=== PATIENT | female | born 1990 | race Caucasian/White ===

== ENCOUNTER 2018-05-27 18:18 | Inpatient (IN) | payer OTHER ==
[2018-05-27 21:44] LABS: RPR Titer ND
[2018-05-27 22:04] LABS: Glucose Level 89 mg/dL (74-106)
[2018-05-27 22:07] LABS: Absolute Lymphocytes (CBC) 2.4 K/uL (0.7-4.9); Absolute Monocytes 0.9 K/uL (0.1-1.3); Absolute Neutrophil 9.5 K/uL (1.8-8.0); Basophils % 0.2 % (0-1.3); Eosinophils % 0.5 % (0-4.4); Hematocrit 38.3 % (36.0-45.0); Lymphocytes % 18.7 % (15.3-44.8); MPV 12.5 fL (7.6-11.3); Monocytes % 7.1 % (3.3-12.3); RBC Red Blood Cell Count 4.56 M/uL (3.86-4.86)
[2018-05-27 22:37] LABS: Blood Morphology Comment NOT SEEN (NOT SEEN); Platelet Estimate DECR; Platelets, Giant 1+; Urine White Blood Cell Casts OK
[2018-05-27] MEDS ORDERED: Ringers Lactate 1,000 ML IV SCH (23:00)
[2018-05-27 23:03] VITALS: BMI 25.8
[2018-05-28 01:03] LABS: Urine Appearance CLEAR; Urine Bilirubin NEGATIVE (NEG); Urine Blood TRACE (NEG); Urine Color DK YELLOW; Urine Glucose NEGATIVE (NEG); Urine Protein NEGATIVE (NEG); Urine Specific Gravity 1.015 (1.005-1.030)
[2018-05-28 01:15] LABS: Barbiturates NEGATIVE (NEGATIVE); Benzodiazepines NEGATIVE (NEGATIVE); Cocaine NEGATIVE (NEGATIVE); METHAMPHETAM NEGATIVE (NEGATIVE); Methadone NEGATIVE (NEGATIVE); Opiates POSITIVE (NEGATIVE); Phencyclidine NEGATIVE (NEGATIVE); THC Cannibis NEGATIVE (NEGATIVE)
[2018-05-28 01:18] LABS: Urine Bacteria <20 /HPF (<20); Urine Culture Reflex Order REFLEXED; Urine RBC <5 /HPF (NONE SEEN)
[2018-05-28 05:27] LABS: Absolute Lymphocytes (CBC) 2.7 K/uL (0.7-4.9); Absolute Monocytes 0.9 K/uL (0.1-1.3); Absolute Neutrophil 7.1 K/uL (1.8-8.0); Basophils % 0.4 % (0-1.3); Hematocrit 34.3 % (36.0-45.0); Lymphocytes % 25.2 % (15.3-44.8); MPV 12.2 fL (7.6-11.3); Monocytes % 8.6 % (3.3-12.3); RBC Red Blood Cell Count 4.13 M/uL (3.86-4.86)
[2018-05-28] MEDS ORDERED: METOCLOPRAMIDE 10 MG/2mL INJ IV SCH (07:00)
[2018-05-28] MEDS ORDERED: NA CIT/CITRIC AC 30 ML ORAL UDC PO ONE (07:00)
[2018-05-28] MEDS ORDERED: FAMOTIDINE 20 MG/2 ML VIAL IV ONE ×2 (07:00→07:27)
--- NOTE | 2018-05-28 07:12 | P.PN ---
Date of Service: 05/28/18 27 year old, suspected growth restriction, oligohydramnios, non-reassuring fht's
[2018-05-28] MEDS ORDERED: MORPHINE SULFATE/PF 1 MG/ML (10 ML AMP) ONE (07:21)
[2018-05-28] MEDS ORDERED: EPHEDRINE SULF 50 MG/ML VIAL ONE (07:22)
[2018-05-28] MEDS ORDERED: OXYTOCIN 10 UNIT/ML ML IV ONE ×2 (07:22→08:46)
[2018-05-28] MEDS ORDERED: NS 0.9% VIAL 10 ML ONE (07:22)
[2018-05-28] MEDS ORDERED: METOCLOPRAMIDE 10 MG/2mL INJ ONE (07:26)
[2018-05-28] MEDS ORDERED: METHYLERGONOVINE 0.2MG/ML AMP IM ONE (07:27)
[2018-05-28] MEDS ORDERED: NA CIT/CITRIC AC 30 ML ORAL UDC ONE (07:27)
[2018-05-28] MEDS ORDERED: CARBOPROST TROME 250 MCG/ML IM ONE ×2 (07:27→08:04)
[2018-05-28] MEDS ORDERED: CEFAZOLIN/SWI 1gm 0 GM/0 ML SYR ONE (07:27)
[2018-05-28] MEDS ORDERED: ONDANSETRON 4 MG/2 ML VIAL ONE (07:28)
[2018-05-28] MEDS ORDERED: CEFAZOLIN/SWI 2gm 2 GM/20 ML SYR ONE (07:42)
--- NOTE | 2018-05-28 08:28 | PREOPHP ---
Date of Admission: 05/28/2018 History Of Present Illness: Ms. Rendon is a 27-year-old single female, 1, para 0, at approximately 37 weeks gestation. She presents to Labor and Delivery with complaints of possible leakage of fluid approximately 12 hours previously. We could not document this, but upon monitoring, severe variable type of deceleration was noted. Because of this, she was admitted for 23-hour observation. She had been seen by a physician in [place], but had not been seen since January. Infant has been active. Past Medical History: Includes only prior placement of plate because of left wrist fracture, otherwise no other hospitalizations, accidents, illnesses, or surgeries. Medications: She is on no medications on a regular basis other than vitamin. Social History: She does smoke one half pack per day, smoked over a pack per day earlier in her . Allergies: SHE HAS NO KNOWN ALLERGIES. DID TAKE A COUPLE OF LORTABS PRIOR TO PRESENTING TO LABOR AND DELIVERY BECAUSE OF SOME BACK DISCOMFORT. Family History: Noncontributory. Review of Systems: She has had dry nonproductive cough. She had a little nausea earlier in the week with vomiting, but that is now normal. She denies any breast lumps. Infant has been active. She denies any current vaginal bleeding or spotting. She denies any discharge problems. She denies recurring bouts of diarrhea or constipation. Physical Examination: General: Reveals female in no apparent distress. Neck: Supple without adenopathy or thyromegaly. Lungs: Clear. Cardiac: Regular rate and rhythm without murmurs. Breasts: Not examined. Abdomen: Consistent with approximately 5+ pound estimated weight. Pelvic Exam: Cervix 2 cm, 70%, vertex, and -1 station. Extremities: No cyanosis, clubbing, or edema. Ultrasound reveals some degree of oligohydramnios, calcified placenta, measurements consistent with approximately 35+ weeks gestation. The patient on monitoring has shown some significant variable decelerations and with evidence of oligohydramnios and placental calcifications. I feel the risk of possible stillbirth and/or that the baby would not tolerate labor are extremely high. She will be delivered by primary section. We will have assistant gm of content & delivery available. This has been discussed with the patient. JEAN-PAUL/CLARIBEL Voice ID: [id number] MTDD
--- NOTE | 2018-05-28 08:35 | RAD REPORT ---
EXAM DESCRIPTION: US - OB Complete - 05/28/2018 7:17 am CLINICAL HISTORY: 37 weeks gestation with decelarations age. COMPARISON: No comparisons FINDINGS: A single cephalic presenting gestation is identified. Heart rate normal. The intracranial contents and spine are grossly normal. A normal stomach bubble is noted. A nor mal fluid-filled urinary bladder seen without pelviectasis. The cord appears three-vessel. Limi emigdio four-chamber view the heart due to age. Estimated weight 6 pounds 6 ounces plus or mi nus 15 ounces. measurements are as follows: BPD:8.8 Centimeters 35 weeks 5 days HC:31.5 Centimeters 35 weeks 2 days AC:32.9 Centimeters 36 weeks 5 days HL:5.9 Centimeters 34 weeks 2 days FL:7.0 Centimeters 35 weeks 5 days The estimated gestational age (EGA) is 35 weeks 4 days with an FAUSTINA of06/28/2018. The placenta is grade 1-2, posterior in location. No placenta previa. The amniotic fluid index is 6.9 cm, with largest pocket 5.0 cm. The maternal adnexa show no worrisome findings. IMPRESSION: 1. Single, cephalic gestation with an EGA of 35 weeks 4 days and an FAUSTINA of the 9. 2. No gross abnormalities are identifiable. Estimated weight 6 pounds 6 ounces +/-15 ounc es. 3. Grade 1-2, posterior placenta. 4. Amniotic fluid index is6.9 cm, with largest pocket5.0 cm -- considered within normal limits.
[2018-05-28] MEDS ORDERED: KETOROLAC 30 MG/ML INJ IV PRN (08:48)
[2018-05-28] MEDS ORDERED: ONDANSETRON 4 MG (ODT) TAB PO PRN (08:48)
[2018-05-28] MEDS ORDERED: CARBOPROST TROME 250 MCG/ML IM PRN (08:48)
[2018-05-28] MEDS ORDERED: METHYLERGONOVINE 0.2 MG TAB PO PRN (08:48)
--- NOTE | 2018-05-28 08:53 | P.BOP ---
Preoperative diagnosis: 37 week , nonreasurring fht's Postoperative diagnosis: same, oligohydramnios, meconium, viable female Primary procedure: Rug Repairer: Kunal Astudillo Estimated blood loss: 800 Specimen: placenta Anesthesia: Spinal Complications: None Drain(s): Urinary catheter Transferred to: Other (2709) Condition: Good
[2018-05-28] MEDS ORDERED: OXYTOCIN/LR 20 UNIT/1,000 ML BAG IV SCH (09:00)
[2018-05-28] MEDS ORDERED: NALOXONE 0.4 MG/ML VIAL IV PRN (09:34)
[2018-05-28] MEDS ORDERED: DIPHENHYDRAMINE 50 MG/ML VIAL IV PRN (09:34)
[2018-05-28] MEDS ORDERED: PROMETHAZINE 25 MG/ML VIAL IV PRN (09:35)
[2018-05-28] MEDS ORDERED: ONDANSETRON 4 MG/2 ML VIAL IV PRN (09:35)
[2018-05-28] MEDS ORDERED: Ringers Lactate 1,000 ML IV ONE (12:39)
--- NOTE | 2018-05-28 16:23 | P.BOP ---
Preoperative diagnosis: 37 week , nonreasurring fht's Postoperative diagnosis: same, oligohydramnios, meconium, viable female Primary procedure: Convention Planner: Kunal Astudillo Estimated blood loss: 800 Specimen: placenta Complications: None Drain(s): Urinary catheter Transferred to: Other (2709) Condition: Good
[2018-05-28] MEDS: Oxycodone HCl/Acetaminophen 1 TAB TAB PO PRN (19:50)
--- NOTE | 2018-05-29 03:14 | OP ---
Surgeon: Jesus Sanchez MD Anesthesiologist: Jewell Doss and Dr. Cristhian Perez. Preoperative Diagnoses: 1.Enfnof-erdvm-lazv . 2.Nonreassuring heart rate with severe variable decelerations. 3.Thrombocytopenia. Procedures: Spinal block anesthesia, primary section, delivery of viable female infant. Postoperative Diagnoses: 1.Cqxeqp-sghxt-mcox . 2.Nonreassuring heart rate with severe variable decelerations. 3.Thrombocytopenia. Description Of Procedure: After the patient received 2 g of Ancef for antibiotic prophylaxis with SC Ds in place, Ross catheter in place, and a spinal block anesthesia obtained, the patient was prepped and draped in the usual fashion for abdominal surgery. A Pfannenstiel skin incision was made, cristina ed down to the fascia. Fascia was incised with a combination of sharp and blunt dissection. This wa s from the underlying rectus muscles. These were divided in the midline. The peritoneum w as identified and incised. Vesicouterine peritoneum was incised. A bladder flap was developed blunt ly. A low-transverse uterine incision was made. A 5-pound 7-ounce female with moderate mecon ium staining of limited amniotic fluid was noted. was delivered vertex OA. Cord was clamped, cut, and the was placed in a warmer. Cord blood was obtained. Placenta was manually removed . The uterus was then exteriorized. The cervix was dilated from above with a ring clamp, which was passed from the operative field. The uterus was closed in 2 layers utilizing 0 Vicryl suture in a ru nning fashion and the second layer was used to imbricate the first. Both layers were nonlocking runn ing sutures. The vesicouterine peritoneum bladder flap was reapproximated with a running suture of 3 -0 Vicryl. The uterus was returned to the peritoneal cavity. A couple of small less than 0.5 cm fib roids were noted on the posterior uterus, subserosal location. The peritoneum was cleaned of amnioti c fluid and blood clot and closed by approximating the rectus muscles in the midline with simple sutu res. The fascia was closed with running sutures of #1 Vicryl from either margin to the middle. Subc utaneous sutures of 3-0 Vicryl, subdermal suture of 3-0 Vicryl, and subcuticular suture of 4-0 Monocr yl were used to close the skin and skin edges. The patient was taken to recovery room in satisfactor y condition with Ross catheter in place and SCDs in place. Estimated total blood loss was less than 800 cc. The patient was given 1 dose of methargen at the time of delivery to help ensure prompt togiak rine contracture with history of thrombocytopenia. Customer Care Associate Surgeon: Dr. Astudillo. JEAN-PAUL/CLARIBEL Voice ID: [id number] Report ID: [id number]
[2018-05-29 03:25] LABS: RPR (Rapid Plasma Reagin) NON-REACT (NON-REACT)
[2018-05-29] MEDS: Oxycodone HCl/Acetaminophen 1 TAB TAB PO PRN ×3 (04:38→19:15)
[2018-05-29 06:32] LABS: Absolute Lymphocytes (CBC) 2.1 K/uL (0.7-4.9); Absolute Monocytes 0.7 K/uL (0.1-1.3); Absolute Neutrophil 7.1 K/uL (1.8-8.0); Basophils % 0.4 % (0-1.3); Hematocrit 32.4 % (36.0-45.0); Lymphocytes % 20.8 % (15.3-44.8); MPV 12.7 fL (7.6-11.3); Monocytes % 6.7 % (3.3-12.3); RBC Red Blood Cell Count 3.89 M/uL (3.86-4.86)
--- NOTE | 2018-05-29 07:29 | P.PN ---
Date of Service: 05/29/18 S-No complaints O-Afeb, vs stable, platelet count 80K, stable, abdomen flat and bandage dry A-Satisfactory P-ambulate, regular diet, lawrence out
[2018-05-29 08:40] LABS: Platelet Estimate ADEQ; Platelets, Giant MOD; Urine White Blood Cell Casts OK
[2018-05-29 08:41] LABS: Blood Morphology Comment NOT SEEN (NOT SEEN)
[2018-05-30] MEDS: Oxycodone HCl/Acetaminophen 1 TAB TAB PO PRN ×2 (00:10→05:08)
--- NOTE | 2018-05-30 07:47 | P.PN ---
Date of Service: 05/30/18 S-No complaints O-Afeb, bp slightly up, abdomen soft, bandage dry A-Satisfactory, baby showing signs of withdrawal whether opiates/nicotine P-Observe until tomorrow, home health care social worker consult.
--- NOTE | 2018-05-31 09:37 | DS ---
Final Hospital Discharge Diagnoses: A 37-week , nonreassuring heart rate, thrombocyto penia. Complications: None. Procedures: Spinal block anesthesia, primary section, delivery of viable female infant. Hospital Course: The patient is a 27-year-old female presenting to Labor and Delivery with possible rupture of membranes, which could not be documented; however, nonreassuring heart rat e with occasional severe variable type of deceleration was noted. Because of this, an ultrasound see gumaro to show decreased amniotic fluid. She was admitted, underwent primary section, deliver ed a 5 pounds 7 ounces female with some signs of growth restriction and meconium staining of t he amniotic fluid. She was dismissed on the third postoperative day, ambulatory on a select diet wit h routine post section activity restrictions. She is to be seen back in my office in 1 week . Lab work included an admission hemoglobin and hematocrit of 12.6 and 38.3, dismissal 11.3 and 32.4 . She had reduced platelet count of 89,000 on admission, dismissal was 80,000. She has a long histo ry of thrombocytopenia stretching back at least 10 years. She is A positive blood type. Antibody sc reen negative. She did have a positive urine drug screen for opiates, and she admitted to taking a c ouple of Lortabs prior to admission. Because of some signs of withdrawal in the baby, Social Service s consult was placed as was a call to CPS. She will be dismissed with prescription for Tylenol No.3, #15 for pain relief, and should be seen back in my office in 1 week for incision check, to continue taking her iron and vitamins with the usual post section activity per our cautions. JEAN-PAUL/CLARIBEL Voice ID: [id number] Report ID: [id number]
[2018-05-31 10:59] VITALS: BP 140/80; TEMP 98.1
[2018-06-02 04:25] LABS: HBsAG Nonreactive (Nonreactive)
== END 2018-05-31 11:15 | disposition home or self-care (01) | DRG 787 ==
LOC: L&D 18:18 → 2ND-WC 20:26 → OBSVTOIN 05-28 06:50 → 2ND-WC 05-28 06:51
PROVIDERS: ADMIT Specialist; ATTEND Specialist
PROC: 10D00Z1 Extraction of Products of Conception, Low, Open Approach (ICD-10-PCS; principal; 2018-05-28 07:45)
DX: O76 Abnormality in fetal heart rate and rhythm complicating labor and delivery (principal); O41.03X0 Oligohydramnios, third trimester, not applicable or unspecified; O99.12 Other diseases of the blood and blood-forming organs and certain disorders involving the immune mechanism complicating childbirth; O99.324 Drug use complicating childbirth; O99.334 Smoking (tobacco) complicating childbirth; F17.210 Nicotine dependence, cigarettes, uncomplicated; O77.0 Labor and delivery complicated by meconium in amniotic fluid; O34.13 Maternal care for benign tumor of corpus uteri, third trimester; D25.2 Subserosal leiomyoma of uterus; D69.6 Thrombocytopenia, unspecified; O36.5930 Maternal care for other known or suspected poor fetal growth, third trimester, not applicable or unspecified; F11.90 Opioid use, unspecified, uncomplicated; Z3A.37 37 weeks gestation of pregnancy; Z37.0 Single live birth
CPT/HCPCS: 36415; 76805; 80307; 81001; 82947; 85025; 86592; 86762; 86850; 86900; 86901; 87086; 87088; 87340; 88307; 99218; G0433; J0690; J2210; J2405; J2590; J2765